=== PATIENT | female | born 2000 | race Two or more races ===

== ENCOUNTER 2022-12-06 08:12 | Emergency (ER) | payer BC, MEDICAID, SELFPAY | END 2022-12-06 09:35 | disposition home or self-care (01) | LOC: ERS 08:12 | DX: S92.421A Displaced fracture of distal phalanx of right great toe, initial encounter for closed fracture (principal); F17.290 Nicotine dependence, other tobacco product, uncomplicated; W23.0XXA Caught, crushed, jammed, or pinched between moving objects, initial encounter ==